=== PATIENT | male | born 1985 | race Caucasian/White ===

== ENCOUNTER 2020-09-07 09:28 | Outpatient (CLI) | payer OTHER, SELFPAY ==
--- NOTE | ~2020-09-07 | XR_ITS ---
EXAMINATION: XR barium swallow DATE: 09/07/2020 10:16 INDICATION: Gastroesophageal reflux disease without esophagitis TECHNIQUE: The patient drank thick barium, gas-producing crystals, and thin barium. Fluoroscopy of th e hypopharynx and esophagus was performed. Fluoroscopy exposure time was 2.5 minutes. The DAP for thi s procedure was 24.79 Gycm2. COMPARISON: None. FINDINGS: There is no mass or stricture of the esophagus. Esophageal motility is normal. There is no hiatal hernia. There was a moderate amount of spontaneous gastroesophageal reflux. IMPRESSION: 1. Moderate amount of spontaneous gastroesophageal reflux. Reviewed, dictated and finalized at location A. [employer]
== END 2020-09-07 09:29 | disposition home or self-care (01) ==
LOC: ANHIMG 09:32
PROVIDERS: Visit Provider Otolaryngology
DX: K21.9 Gastro-esophageal reflux disease without esophagitis (principal)
CPT/HCPCS: 74220

== ENCOUNTER 2022-11-18 10:29 | Emergency (ER) | payer OTHER, SELFPAY ==
[2022-11-18 10:40] VITALS: BP 168/105; PULSE 101; RESP 16; TEMP 37.1; O2SAT 100
--- NOTE | 2022-11-18 11:14 | ED.URI ---
HPI - URI/Sore Throat General Chief Complaint: Upper Respiratory Infection Stated Complaint: Cough/SOB Time Seen by Provider: 11/18/22 11:14 Source: patient Mode of arrival: ambulatory Limitations: no limitations History of Present Illness HPI Narrative: 37-year-old male presents with complaint of nasal congestion, postnasal drainage, tickle to throat for 4 days. Reports he has been coughing for 3 days, worse when he has the typical to his throat. Is taking an [id number] DayQuil NyQuil cold and flu. Patient reports history of asthma and is concerned that his lungs are going to seize . Would like some steroids. Is using his inhalers as prescribed. States that he can hear himself wheezing in his sleep. Denies pain. Patient speaking in full sentences. No respiratory distress noted . States his primary care physician retired 3 months ago. All systems reviewed and negative except as noted above. Related Data Home Medications Medication Instructions Recorded Confirmed albuterol sulfate 90 mcg/actuation 2 inh inhalation DIRECTED 11/18/22 11/18/22 aerosol inhaler (Ventolin HFA) budesonide-formoterol HFA 80 2 puff inhalation DIRECTED 11/18/22 11/18/22 mcg-4.5 mcg/actuation aerosol inhaler Allergies Allergy/AdvReac Type Severity Reaction Status Date / Time Cephalosporins Allergy Unknown unknown Verified 11/18/22 10:41 gatifloxacin [From Tequin] Allergy Unknown Unknown Verified 11/18/22 10:41 Review of Systems Review of Systems: CONSTITUTIONAL: Denies fever, chills, or sweats. EYES: Denies visual changes, redness, or discharge. ENT: reports rhinorrhea, congestion, sore throat. Denies otalgia. CARDIOVASCULAR: Denies chest pain, palpitations, or edema. RESPIRATORY: reports cough, wheezing. Deniesdyspnea. GASTROINTESTINAL: Denies abdominal pain, nausea, vomiting, or diarrhea. GENITOURINARY: Denies dysuria or hematuria. SKIN: Denies rash or itching. MUSCULOSKELETAL: Denies back pain, joint pain, or myalgia. NEUROLOGIC: Denies headache, numbness, or weakness. PSYCHIATRIC: Denies anxiety or depression. All other systems reviewed are negative, except as documented in HPI. [facility] Family History Family History (Updated 09/07/20 @ 08:34 by Yari Melendez) Father Cerebrovascular accident Mother Diabetes mellitus Hypertension Heart disease Social History Social History (Updated 09/07/20 @ 08:35 by Yari Melendez) Smoking packs per day: 1.5 Smoking cigarettes per day: 30.0 Smoking status: Current every day smoker Tobacco type: cigarettes and e-cigarettes/vaping Alcohol intake: current Drinks per week: 2 Substance use: never Comments At time of signature, agree with nursing past medical, surgical, social and family history. There is no relevant family history pertinent to the presenting complaint. Exam Narrative: GENERAL: This is a well-nourished, well-developed patient, in no apparent distress. HEAD: normocephalic, atraumatic. EYES: PERRL. Sclera clear/white. Vision is grossly intact. EARS: External ears normal, auditory canals clear and without drainage, fluid bilateral TMs without erythema or perforation. NOSE: External nose normal with Clear nasal drainage, erythema and swelling to both nares. THROAT: Mucous membranes moist, Clear postnasal drainage. NECK: Neck supple, non-tender without lymphadenopathy, masses or thyromegaly. CARDIOVASCULAR: Regular rate and rhythm without murmurs, gallops, or rubs. RESPIRATORY: Clear to auscultation. Breath sounds equal bilaterally. No wheezes, rales, or rhonchi. SKIN: warm, Dry, intact with no suspicious lesions or rash, good texture and turgor. NEURO: awake, alert, and oriented to person, place and time. There were no obvious focal neurologic abnormalities. EXTREMITIES: No joint tenderness, effusion, or edema noted. Course Course Level of Care: Express Care Visit Vital Signs Vital signs: Vital Signs Temperatu
== END 2022-11-18 11:28 | disposition home or self-care (01) ==
PROVIDERS: Emergency Provider Nurse Practitioner Family
DX: J01.90 Acute sinusitis, unspecified (principal); J45.909 Unspecified asthma, uncomplicated; R03.0 Elevated blood-pressure reading, without diagnosis of hypertension; F17.210 Nicotine dependence, cigarettes, uncomplicated; F17.290 Nicotine dependence, other tobacco product, uncomplicated
CPT/HCPCS: 99213; G0463